=== PATIENT | male | born 2000 | race Caucasian/White ===

== ENCOUNTER 2018-09-13 13:40 | Emergency (ER) | payer SELFPAY ==
[~2018-09-13] VITALS: Ht 177.8 cm; Wt 82.0 kg
[2018-09-13 13:55] VITALS: BP 117/50
== END 2018-09-13 19:44 | disposition left against medical advice (07) ==
LOC: ER 15:48
DX: R11.2 Nausea with vomiting, unspecified (principal); Z53.21 Procedure and treatment not carried out due to patient leaving prior to being seen by health care provider